=== PATIENT | male | born 1990 | race Hispanic/Latino ===

== ENCOUNTER 2018-08-30 06:56 | Emergency (ER) | payer SELFPAY ==
[2018-08-30] MEDS ORDERED: NA CHLORIDE 0.9% 1,000 ML ONE (07:28)
[2018-08-30 07:30] LABS: Absolute Lymphocytes (CBC) 3.8 K/uL (0.7-4.9); Absolute Monocytes 0.4 K/uL (0.1-1.3); Absolute Neutrophil 2.1 K/uL (1.8-8.0); Basophils % 0.8 % (0-1.3); Eosinophils % 2.6 % (0-4.4); Hematocrit 47.4 % (39.6-49.0); Lymphocytes % 58.5 % (15.3-44.8); MPV 8.9 fL (7.6-11.3); Monocytes % 6.2 % (3.3-12.3); RBC Red Blood Cell Count 5.49 M/uL (4.33-5.43)
--- NOTE | 2018-08-30 07:39 | EKG ---
Test Date: 2018-08-30 Test Time: 07:21:13 Director Biostatistics: BRUNO MEASUREMENT RESULTS: Intervals: Rate: 60 NC: 142 QRSD: 84 QT: 402 QTc: 402 [place]: P: 31 NC: 142 QRS: 16 T: 12 INTERPRETIVE STATEMENTS: Normal sinus rhythm Normal ECG No previous ECG available for comparison Electronically Signed On 08-30-18 07:27:35 CINDER PIT CRANE OPERATOR by Theodore Aleman
--- NOTE | 2018-08-30 08:02 | ER ---
Nurse's Notes [facility] Name: Abhinav Mccarty Age: 28 yrs Sex: Male : 1990 Arrival Date: 08/30/2018 Time: 06:58 Bed 19 Private MD: Diagnosis: Palpitations Presentation: 08/30 07:11 Presenting complaint: Patient states: woke up around 0400, thought he was late for work sv but then started "feeling strange" c/o palpitations and left lower side chest pain that lasted about an hour. Denies pain at this time. Transition of care: patient was not received from another setting of care. Onset of symptoms was August 30, 2018 at 04:00. Risk Assessment: Do you want to hurt yourself or someone else? Patient reports no desire to harm self or others. Initial Sepsis Screen: Does the patient meet any 2 criteria? No. Patient's initial sepsis screen is negative. Does the patient have a suspected source of infection? No. Patient's initial sepsis screen is negative. Care prior to arrival: None. 07:11 Method Of Arrival: Ambulatory sv 07:11 Acuity: PANCHO 3 sv Triage Assessment: 07:13 General: Appears in no apparent distress. comfortable, well groomed, well developed, sv Behavior is calm, cooperative, appropriate for age. Pain: Denies pain. Neuro: Level of Consciousness is awake, alert, obeys commands, Oriented to person, place, time, situation, Moves all extremities. Full function Gait is steady, Speech is normal. Respiratory: Airway is patent Respiratory effort is even, unlabored, Respiratory pattern is regular, symmetrical. Derm: Skin is pink, warm \\T\\ dry. Historical: - Allergies: 07:13 No Known Allergies; sv - PMHx: 07:13 Anxiety; sv - PSHx: 07:13 None; sv - Immunization history:: Adult Immunizations up to date. - Social history:: Smoking status: Patient/guardian denies using tobacco. - Family history:: not pertinent. - Ebola Screening: : No symptoms or risks identified at this time. - Hospitalizations: : No recent hospitalization is reported. Screenin:14 Abuse screen: Denies threats or abuse. Denies injuries from another. Nutritional sv screening: No deficits noted. Tuberculosis screening: No symptoms or risk factors identified. Fall Risk None identified. Assessment: 08:20 Reassessment: Patient appears in no apparent distress at this time. No changes from sv previously documented assessment. Patient and/or family updated on plan of care and expected duration. Pain level reassessed. Patient is alert, oriented x 3, equal unlabored respirations, skin warm/dry/pink. Vital Signs: 07:13 BP 136 / 95; Pulse 74; Resp 18; Temp 97.2; Pulse Ox 98% ; Weight 79.38 kg; Height 5 ft. sv 5 in. (165.10 cm); Pain 0/10; 07:52 BP 122 / 82; Pulse 58; Resp 16; Pulse Ox 99% ; sv 07:13 Body Mass Index 29.12 (79.38 kg, 165.10 cm) sv ED Course: 06:58 Patient arrived in ED. es 07:07 Cintia Whitaker, RN is Primary Nurse. sv 07:08 Cash Novoa MD is Attending Physician. rn 07:12 Triage completed. sv 07:13 Arm band placed on Patient placed in an exam room, on a stretcher, on pulse oximetry. sv 07:14 Patient has correct armband on for positive identification. Bed in low position. Call sv light in reach. Pulse ox on. NIBP on. Door closed. Head of bed elevated. 07:20 Initial lab(s) drawn, by ED staff, sent to lab. Inserted saline lock: 20 gauge in right sv antecubital area, using aseptic technique. Blood collected. Flushed right forearm with 5 ml normal saline. 07:36 EKG done, by fabrication technician. reviewed by Cash Novoa MD. at1 08:20 No provider procedures requiring assistance completed. IV discontinued, intact, sv bleeding controlled, No redness/swelling at site. Pressure dressing applied. Administered Medications: 07:23 Drug: NS 0.9% 1000 ml Route: IV; Rate: 1000 ml; Site: right antecubital; sv 08:21 Follow up: Response: No adverse reaction; IV Status: Completed infusion; IV Intake: sv 1000ml Intake: 08:21 IV: 1000ml; Total: 1000ml. sv Outcome: 07:59 Discharge ordered by . rn 08:21 Discharged to home ambulatory. sv 08:21 Condition: stable 08:21 Discharge instructions given to patient, Instructed on discharge instructions, follow up and referral plans. Demonstrated understanding of instructions, follow-up care. 08:21 Patient left the ED. sv Signatures: Cintia Whitaker RN RN sv Salyer, Edna es Nieto, Roman, MD MD rn Shaina Choi, primer inserting machine operator EKG Tat1
--- NOTE | 2018-08-30 08:02 | EDPHYS ---
Physician Documentation [facility] Name: Abhinav Mccarty Age: 28 yrs Sex: Male : 1990 Arrival Date: 08/30/2018 Time: 06:58 Bed 19 Private MD: ED Physician Cash Novoa HPI: 08/30 07:57 This 28 yrs old Male presents to ER via Ambulatory with complaints of rn Palpitations. 07:57 The patient presents with a history of heart racing. Context: The symptoms occur during rn sleep. Onset: The symptoms/episode began/occurred this morning. Duration: The patient or guardian reports a single episode. Severity of symptoms: At their worst the symptoms were moderate in the emergency department the symptoms have resolved. The patient has experienced similar episodes in the past. The patient has not recently seen a physician. Reports woke up from sleep with palpitations, no chest pain, felt fine when going to bed, no fever/chills/cough/sob/abd pain/vomiting/diarrhea. Now resolved. Numerous episodes in past, attributed to anxiety. . Historical: - Allergies: 07:13 No Known Allergies; sv - PMHx: 07:13 Anxiety; sv - PSHx: 07:13 None; sv - Immunization history:: Adult Immunizations up to date. - Social history:: Smoking status: Patient/guardian denies using tobacco. - Family history:: not pertinent. - Ebola Screening: : No symptoms or risks identified at this time. - Hospitalizations: : No recent hospitalization is reported. ROS: 07:57 Constitutional: Negative for fever, chills, and weight loss, Eyes: Negative for injury, rn pain, redness, and discharge, Neck: Negative for injury, pain, and swelling, Cardiovascular: Negative for chest pain, and edema, Respiratory: Negative for shortness of breath, cough, wheezing, and pleuritic chest pain, Abdomen/GI: Negative for abdominal pain, nausea, vomiting, diarrhea, and constipation, MS/Extremity: Negative for injury and deformity, Skin: Negative for injury, rash, and discoloration, Neuro: Negative for headache, weakness, numbness, tingling, and seizure. Exam: 07:54 ECG was reviewed by the Attending Physician. rn 07:57 Constitutional: This is a well developed, well nourished patient who is awake, alert, rn and in no acute distress. Head/Face: Normocephalic, atraumatic. Eyes: Pupils equal round and reactive to light, extra-ocular motions intact. Lids and lashes normal. Conjunctiva and sclera are non-icteric and not injected. Cornea within normal limits. Periorbital areas with no swelling, redness, or edema. Cardiovascular: Regular rate and rhythm with a normal S1 and S2. No gallops, murmurs, or rubs. Normal PMI, no JVD. No pulse deficits. Respiratory: Lungs have equal breath sounds bilaterally, clear to auscultation. No increased work of breathing, no retractions or nasal flaring. Abdomen/GI: soft, non-tender Skin: Warm, dry with normal turgor. Normal color with no rashes, no lesions, and no evidence of cellulitis. MS/ Extremity: Pulses equal, no cyanosis. Neurovascular intact. Full, normal range of motion. Equal circumference. Neuro: Awake and alert, GCS 15, oriented to person, place, time, and situation. Cranial nerves II-XII grossly intact. Motor strength 5/5 in all extremities. Sensory grossly intact. Cerebellar exam normal. Normal gait. Vital Signs: 07:13 BP 136 / 95; Pulse 74; Resp 18; Temp 97.2; Pulse Ox 98% ; Weight 79.38 kg; Height 5 ft. sv 5 in. (165.10 cm); Pain 0/10; 07:52 BP 122 / 82; Pulse 58; Resp 16; Pulse Ox 99% ; sv 07:13 Body Mass Index 29.12 (79.38 kg, 165.10 cm) sv MDM: 07:08 Patient medically screened. rn 07:57 Data reviewed: vital signs, nurses notes, lab test result(s), EKG, and as a result, I rn will discharge patient. Counseling: I had a detailed discussion with the patient and/or guardian regarding: the historical points, exam findings, and any diagnostic results supporting the discharge/admit diagnosis, lab results, the need for outpatient follow up, to return to the emergency department if symptoms worsen or persist or if there are any questions or concerns that arise at home. Response to treatment: the patient's condition has returned to base line, the patient is now symptom free, and as a result, I will discharge patient. Special discussion: I discussed with the patient/guardian in detail that at this point there is no indication for admission to the hospital. It is understood, however, that if the symptoms persist or worsen the patient needs to return immediately for re-evaluation. 08/30 07:13 Order name: CBC with Diff; Complete Time: 07:54 rn 08/30 07:13 Order name: Basic Metabolic Panel; Complete Time: 07:54 rn 08/30 07:13 Order name: IV Start; Complete Time: 07:23 rn 08/30 07:13 Order name: EKG; Complete Time: 07:14 rn 08/30 07:14 Order name: EKG - Nurse/Tech; Complete Time: : rn EC:54 Rate is 60 beats/min. Rhythm is regular. QRS [place] is Normal. [place] interval is normal. QRS rn interval is normal. QT interval is normal. No Q waves. T waves are Normal. No ST changes noted. Clinical impression: Normal ECG. Interpreted by me. Administered Medications: : Drug: NS 0.9% 1000 ml Route: IV; Rate: 1000 ml; Site: right antecubital; sv 08:21 Follow up: Response: No adverse reaction; IV Status: Completed infusion; IV Intake: sv 1000ml Disposition: 08/30/18 07:59 Discharged to Home. Impression: Palpitations. - Condition is Stable. - Discharge Instructions: Palpitations. - Work release form, Medication Reconciliation Form, Thank You Letter, Antibiotic Education, Prescription Opioid Use form. - Follow up: Private Physician; When: As needed; Reason: Recheck today's complaints, Re-evaluation by your physician. - Problem is new. - Symptoms have improved. Signatures: Dispatcher [employer] Cintia Osborn RN RN Cash Novoa MD MD quality assurance intern: (The following items were deleted from the chart) 08:21 07:59 08/30/2018 07:59 Discharged to Home. Impression: Palpitations. Condition is sv Stable. Forms are Medication Reconciliation Form, Thank You Letter, Antibiotic Education, Prescription Opioid Use. Follow up: Private Physician; When: As needed; Reason: Recheck today's complaints, Re-evaluation by your physician. Problem is new. Symptoms have improved. rn
== END 2018-08-30 08:21 | disposition home or self-care (01) ==
LOC: ER 06:56
DX: R00.2 Palpitations (principal); F41.9 Anxiety disorder, unspecified
CPT/HCPCS: 36415; 80048; 85025; 93005; 96360; 99284; J7030

== ENCOUNTER 2020-11-12 07:09 | Emergency (ER) | payer OTHER, SELFPAY ==
--- OUTSIDE RECORDS SUMMARY | 2020-11-12 07:11 | XMS REPORT | Continuity of Care Document ---
:1990 Author Organization [facility] t Address [address] [place] [address] Care Team Providers Name Role Phone Unavailable Unavailable Unavailable Payers Payer Name Policy Type Policy Number Effective Date Expiration Date S ource Problems This patient has no known problems. Allergies, Adverse Reactions, Alerts Allergy Allergy Status Severity Reaction(s) Onset Inactive Treating Comm ents Source Name Type Date Date Clinician No Known DA Active U 2017-0 [facility] All[facility] 2 [facility] Medications This patient has no known medications. Procedures This patient has no known procedures. Results This patient has no known results.
[2020-11-12] MEDS ORDERED: MAGNES/ALUMIN/SIMET 30ML UCUP ONE (08:03)
--- NOTE | 2020-11-12 08:03 | ER ---
Nurse's Notes [facility] Name: Abhinav Mccarty Age: 30 yrs Sex: Male : 1990 Arrival Date: 11/12/2020 Time: 07:11 Bed 4 Private MD: Diagnosis: Chest pain, unspecified;Gastro-esophageal reflux disease Presentation: 11/12 07:36 Chief complaint: Patient states: episodes of L sided chest pain described as needles ss that has been ongoing for years, but is getting worse over the past few days. Pt states, "I don't know if my anxiety is coming back or what.". Coronavirus screen: Client denies travel out of the [place] in the last 14 days. Ebola Screen: Patient denies exposure to infectious person. Patient denies travel to an Ebola-affected area in the 21 days before illness onset. Initial Sepsis Screen: Does the patient meet any 2 criteria? No. Patient's initial sepsis screen is negative. Does the patient have a suspected source of infection? No. Patient's initial sepsis screen is negative. Risk Assessment: Do you want to hurt yourself or someone else? Patient reports no desire to harm self or others. Onset of symptoms is unknown. 07:36 Method Of Arrival: Ambulatory ss 07:36 Acuity: PANCHO 3 ss Historical: - Allergies: 07:44 No Known Allergies; ss - Home Meds: 07:44 None [Active]; ss - PMHx: 07:44 Anxiety; ss - PSHx: 07:44 None; ss - Immunization history:: Adult Immunizations up to date. - Social history:: Smoking status: Patient denies any tobacco usage or history of. - Family history:: not pertinent. - Hospitalizations: : No recent hospitalization is reported. Screenin:44 Abuse screen: Denies threats or abuse. Denies injuries from another. Nutritional ss screening: No deficits noted. Tuberculosis screening: Never had TB. Fall Risk None identified. 07:57 Abuse screen: Denies threats or abuse. Denies injuries from another. Nutritional ld1 screening: No deficits noted. Tuberculosis screening: No symptoms or risk factors identified. Fall Risk None identified. Assessment: 07:57 General: Appears in no apparent distress. comfortable, Behavior is calm, cooperative, ld1 appropriate for age. Pain: Complains of pain in anterior aspect of left upper chest and left breast Pain does not radiate. Pain currently is 3 out of 10 on a pain scale. Quality of pain is described as burning, Pain began gradually, Is continuous, Aggravated by eating. Neuro: Level of Consciousness is awake, alert, obeys commands, Oriented to person, place, time, situation, Appropriate for age. Cardiovascular: Reports chest pain, Capillary refill < 3 seconds Patient's skin is warm and dry. Rhythm is regular. Respiratory: Airway is patent Respiratory effort is even, unlabored, Respiratory pattern is regular, symmetrical. GI: Abdomen is flat, non-distended, Bowel sounds present X 4 quads. : No deficits noted. EENT: No deficits noted. Derm: No deficits noted. Musculoskeletal: No deficits noted. Vital Signs: 07:36 Resp 16; Temp 97.6; Weight 90.72 kg; Height 5 ft. 5 in. (165.10 cm); Pain 3/10; ss 07:57 BP 130 / 94; Pulse 70; Resp 17; Temp 98.4(O); Pulse Ox 100% on R/A; Weight 90.72 kg; ld1 Height 5 ft. 5 in. (165.10 cm); Pain 3/10; 07:57 Body Mass Index 33.28 (90.72 kg, 165.10 cm) ld1 ED Course: 07:11 Patient arrived in ED. cl3 07:13 Cash Novoa MD is Attending Physician. rn 07:31 Wen Birmingham, CHEMO is Primary Nurse. ld1 07:43 Triage completed. ss 07:44 Arm band placed on left wrist. ss 07:44 Patient has correct armband on for positive identification. Bed in low position. Call ss light in reach. credit charge authorizer on. Pulse ox on. NIBP on. 07:44 Patient maintains SpO2 saturation greater than 95% on room air. ss 07:57 Patient has correct armband on for positive identification. Bed in low position. Call ld1 light in reach. Side rails up X 1. credit charge authorizer on. Pulse ox on. NIBP on. Door closed. Noise minimized. 07:57 No provider procedures requiring assistance completed. Patient maintains SpO2 ld1 saturation greater than 95% on room air. 08:29 Patient did not have IV access during this emergency room visit. ld1 Administered Medications: 07:56 Drug: GI Cocktail without - (Maalox Suspension 30 ml, Lidocaine Liquid 2 % 15 ld1 ml) Route: PO; 08:30 Follow up: Response: No adverse reaction ld1 Outcome: 08:03 Discharge ordered by . rn 08:29 Discharged to home ambulatory. ld1 08:29 Condition: stable 08:29 Discharge instructions given to patient, Instructed on discharge instructions, follow up and referral plans. medication usage, Demonstrated understanding of instructions, follow-up care, medications, Prescriptions given X 1. 08:29 Patient left the ED. ld1 Signatures: Cash Novoa MD MD rn Smirch, Shelby, RN RN ss Lewis, Charde cl3 Wen Birmingham RN RN ld1
--- NOTE | 2020-11-12 08:03 | EDPHYS ---
Physician Documentation [facility] Name: Abhinav Mccarty Age: 30 yrs Sex: Male : 1990 Arrival Date: 11/12/2020 Time: 07:11 Bed 4 Private MD: ED Physician Cash Novoa HPI: 11/12 07:43 This 30 yrs old Male presents to ER via Ambulatory with complaints of Chest rn Pain. 07:43 The patient or guardian reports chest pain that is located primarily in the anterior rn chest wall, left. The pain does not radiate. Associated signs and symptoms: Pertinent positives: None. Pertinent negatives: abdominal pain, cough, diaphoresis, dizziness, lightheadedness, nausea, palpitations, shortness of breath, syncope, vomiting. The chest pain is described as aching. Duration: The patient or guardian reports multiple episodes, that are intermittent. Modifying factors: The symptoms are alleviated by nothing. the symptoms are aggravated by eating. Severity of pain: At its worst the pain was mild in the emergency department the pain has improved. The patient has experienced similar episodes in the past. The patient has not recently seen a physician. Reports chest pain, left sided, for atleast 2 years, intermittent, reports not sure if his anxiety, but has also been having acid reflux lately, doesn't take any medication for reflux, only intermittent Tums. No abd pain/vomiting. . Historical: - Allergies: 07:44 No Known Allergies; ss - Home Meds: 07:44 None [Active]; ss - PMHx: 07:44 Anxiety; ss - PSHx: 07:44 None; ss - Immunization history:: Adult Immunizations up to date. - Social history:: Smoking status: Patient denies any tobacco usage or history of. - Family history:: not pertinent. - Hospitalizations: : No recent hospitalization is reported. ROS: 07:43 Constitutional: Negative for fever, chills, and weight loss, Eyes: Negative for injury, rn pain, redness, and discharge, Neck: Negative for injury, pain, and swelling, Cardiovascular: Negative for palpitations, and edema Respiratory: Negative for shortness of breath, cough, wheezing, and pleuritic chest pain, Abdomen/GI: Negative for abdominal pain, nausea, vomiting, diarrhea, and constipation, Back: Negative for injury and pain, MS/Extremity: Negative for injury and deformity, Skin: Negative for injury, rash, and discoloration, Neuro: Negative for headache, weakness, numbness, tingling, and seizure. Exam: 07:43 Constitutional: This is a well developed, well nourished patient who is awake, alert, rn and in no acute distress. Ambulatory to room without difficulty Head/Face: Normocephalic, atraumatic. Eyes: Periorbital areas with no swelling, redness, or edema. Cardiovascular: Regular rate and rhythm. No pulse deficits. Respiratory: No increased work of breathing, no retractions or nasal flaring. Abdomen/GI: Soft, non-tender, with normal bowel sounds. No distension or tympany. No guarding or rebound. No evidence of tenderness throughout. Skin: Warm, dry MS/ Extremity: Pulses equal, no cyanosis. Neuro: Awake and alert, GCS 15, oriented to person, place, time, and situation. Cranial nerves II-XII grossly intact. Motor strength 5/5 in all extremities. Sensory grossly intact. Cerebellar exam normal. Normal gait. 07:59 ECG was reviewed by the Attending Physician. rn Vital Signs: 07:36 Resp 16; Temp 97.6; Weight 90.72 kg; Height 5 ft. 5 in. (165.10 cm); Pain 3/10; ss 07:57 BP 130 / 94; Pulse 70; Resp 17; Temp 98.4(O); Pulse Ox 100% on R/A; Weight 90.72 kg; ld1 Height 5 ft. 5 in. (165.10 cm); Pain 3/10; 07:57 Body Mass Index 33.28 (90.72 kg, 165.10 cm) ld1 MDM: 07:13 Patient medically screened. rn 07:59 Differential diagnosis: acute pericarditis, anxiety, chest wall pain, Cholelithiasis rn esophagitis, gastritis, gastroesophageal reflux disease (GERD), pleurisy. Data reviewed: vital signs, nurses notes, old medical records, EKG, and as a result, I will discharge patient. Counseling: I had a detailed discussion with the patient and/or guardian regarding: the historical points, exam findings, and any diagnostic results supporting the discharge/admit diagnosis, the need for outpatient follow up, to return to the emergency department if symptoms worsen or persist or if there are any questions or concerns that arise at home. Special discussion: Based on the patient's history, exam, and Dx evaluation, there is no indication for emergent intervention or inpatient Tx. It is understood by the patient/guardian that if the Sx's persist or worsen they need to return immediately for re-evaluation. I discussed with the patient/guardian in detail that at this point there is no indication for admission to the hospital. It is understood, however, that if the symptoms persist or worsen the patient needs to return immediately for re-evaluation. 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 . 11/12 07:41 Order name: EKG; Complete Time: 07:41 rn 11/12 07:41 Order name: EKG - Nurse/Tech; Complete Time: 07:57 rn EC:59 Rate is 61 beats/min. Rhythm is regular. QRS [place] is Normal. CT interval is normal. QRS rn interval is normal. QT interval is normal. No Q waves. T waves are Normal. No ST changes noted. Clinical impression: Normal ECG. Interpreted by me. Reviewed by me. Administered Medications: 07:56 Drug: GI Cocktail without - (Maalox Suspension 30 ml, Lidocaine Liquid 2 % 15 ld1 ml) Route: PO; 08:30 Follow up: Response: No adverse reaction ld1 Disposition: 11/12/20 08:03 Discharged to Home. Impression: Chest pain, unspecified, Gastro-esophageal reflux disease. - Condition is Stable. - Discharge Instructions: Nonspecific Chest Pain, Gastroesophageal Reflux Disease, Adult. - Prescriptions for Protonix 40 mg Oral Tablet - take 1 tablet by ORAL route once daily; 30 tablet. - Medication Reconciliation Form, Thank You Letter, Antibiotic Education, Prescription Opioid Use, Work release form form. - Follow up: Private Physician; When: As needed; Reason: Recheck today's complaints, Re-evaluation by your physician. - Problem is chronic. - Symptoms have improved. Signatures: Cash Novoa MD MD rn Smirch, Shelby, RN RN Wen Birmingham RN RN ld1 Corrections: (The following items were deleted from the chart) 08:29 08:03 11/12/2020 08:03 Discharged to Home. Impression: Chest pain, unspecified; ld1 Gastro-esophageal reflux disease. Condition is Stable. Forms are Medication Reconciliation Form, Thank You Letter, Antibiotic Education, Prescription Opioid Use. Follow up: Private Physician; When: As needed; Reason: Recheck today's complaints, Re-evaluation by your physician. Problem is chronic. Symptoms have improved. rn
[2020-11-12] MEDS ORDERED: LIDOCAINE VISCOUS 2% SOLN 15 ML UDC ONE (08:04)
[2020-11-12 08:36] VITALS: BP 130/94; TEMP 98.4; O2SAT 100
--- NOTE | 2020-11-13 16:13 | EKG ---
Test Date: 2020-11-12 Test Time: 07:53:59 Career Development Specialist: Jluis HUMPHREY MEASUREMENT RESULTS: Intervals: Rate: 61 NV: 144 QRSD: 88 QT: 400 QTc: 402 [place]: P: 42 NV: 144 QRS: -12 T: 4 INTERPRETIVE STATEMENTS: Normal sinus rhythm Moderate voltage criteria for LVH, may be normal variant Borderline ECG Compared to ECG 08/30/2018 07:21:13 Left ventricular hypertrophy now present Electronically Signed On 11-13-20 16:07:29 CDT by Anton Leiva
== END 2020-11-12 08:29 | disposition home or self-care (01) ==
LOC: ER 07:09
DX: K21.9 Gastro-esophageal reflux disease without esophagitis (principal)
CPT/HCPCS: 93005; 99284

== ENCOUNTER 2022-03-09 11:06 | Emergency (ER) | payer SELFPAY ==
--- OUTSIDE RECORDS SUMMARY | 2022-03-09 11:10 | XMS REPORT | Continuity of Care Document ---
:1990 Author Organization [facility] t Address [address] [place] [address] Care Team Providers Name Role Phone WELLNESS Attending Clinician Unavailable Narcisa Jauregui Admitting Clinician Unavailable Payers Payer Name Policy Type Policy Number Effective Date Expiration Date S ource Problems This patient has no known problems. Allergies, Adverse Reactions, Alerts Allergy Allergy Status Severity Reaction(s) Onset Inactive Treating Comm ents Source Name Type Date Date Clinician No Known DA Active U 2017-0 [facility] No Known DA Active U 2018-0 [facility] Medications This patient has no known medications. Procedures This patient has no known procedures. Encounters Start End Encounter Admission Attending Care Care Encounter Source Date/Time Date/Time Type Type Clinicians Facility Department ID 2020-07-09 Inpatient [facility] [id number] [facility] 00:49:00 [id number] [facility] Results Test Description Test Time Test Comments Results Result Comments Source CHEMISTRY 25 PROFILE 2022-02-13 14:55:00 Test Item Value Reference Range Interpretation Comme nts SODIUM (test code = NA) 139 mmol/L 136-145 N POTASSIUM (test code = K) 4.2 mmol/L 3.5-5.1 N CHLORIDE (test code = CL) 105 mmol/L 98-107 N CARBON DIOXIDE (test code = CO2) 26 mmol/L 21-32 N GLUCOSE (test code = GLU) 105 mg/dL 70-100 H BLOOD UREA NITROGEN (test code = 17 mg/dL 7-18 N BUN) GLOMERULAR FILTRATION RATE (test > 60.00 See_Comment Reporting units: code = GFR) mL/min/1.73m\S\ 2 (Modified MDRD formula)RE FERENCE RANGE: > or = 6 0 ml/min/1.73M2IF PATIENT IS -REYNALDO N, MULTIPLY REPORTED RESULT BY1.21. [Automated mess age] The system which ge nerated this result transmit yesenia reference range: >=60. Th e reference range was not u sed to interpret this result as normal/abnormal . CREATININE (test code = CREAT) 1.32 mg/dl 0.70-1.30 H TOTAL PROTEIN (test code = PROT) 8.5 g/dl 6.4-8.2 H ALBUMIN (test code = ALB) 4.3 g/dl 3.4-5.0 N CALCIUM (test code = CA) 8.7 mg/dl 8.5-10.1 N PHOSPHOROUS (test code = PHOS) 2.2 mg/dl 2.6-4.7 L URIC ACID (test code = URIC) 9.0 mg/dL 3.5-7.2 H TRIGLYCERIDES (test code = TRIG) 97 mg/dL <150 CHOLESTEROL (test code = CHOL) 258 mg/dL < 200 H BILIRUBIN TOTAL (test code = 0.9 mg/dL 0.2-1.0 N BILT) SGOT/AST (test code = AST) 7 U/L 15-37 L SGPT/ALT (test code = ALT) 25 U/L 12-78 N GAMMA GLUTAMYL TRANSPEPTIDASE 26 U/L 15-85 N (test code = GGT) ALKALINE PHOSPHATASE TOTAL (test 83 U/L 45-117 N code = ALKP) LACTIC DEHYDROGENASE(LDH) (test 192 U/L 87-241 N code = LDH) HDL CHOLESTEROL (test code = 48 mg/dL 40-59 N HDL) NON-HDL CHOLESTEROL (test code = 210 mg/dl <130 H NHDL) LIPOPROTEIN LDL SERGO (test code = 191 mg/dl <100 H LDLC) LDL/HDL (test code = LDL/HDL) 4.0 Ratio LDL/HDL RATIO RISK ---- 3.22 Average 5.03 Tw ice average 6.14 Three time s average [id number] 14:44:00 Test Item Value Reference Range Interpretation Comments GLYCOSYLATED HEMOGLOBIN 5.7 % <5.7 H * DU E TO METHOD (HA1C) (test code = REVISION , REFERENCE GLYHGB) RANGE HAS BEEN UPDATED * ESTIMATED AVERAGE 117 MG/DL <126 GLUCOSE (test code = EAG) PECBC W/AUTO [id number] 14:34:00 Test Item Value Reference Range Interpretation Comments WHITE BLOOD CELL (test code = 5.1 X10(3) 4.5-11.0 N WBC) RED BLOOD CELL (test code = 5.66 X10(6) 4.3-5.9 N RBC) HEMOGLOBIN (test code = HGB) 16.3 g/dL 13.5-18.0 N HEMATOCRIT (test code = HCT) 48.2 % 42.0-52.0 N MEAN CELL VOLUME (test code = 85.2 fL 78-100 N MCV) MEAN CELL HGB (test code = MCH) 28.8 pg 26.0-34.0 N MEAN CELL HGB CONCETRATION 33.8 g/dl 30.0-37.0 N (test code = MCHC) RED CELL DISTRIBUTION WIDTH 12.2 % 11.5-14.5 N (test code = RDW) PLATELET COUNT (test code = 287 X10(3) 150-350 N PLT) MEAN PLATELET VOLUME (test code 10.2 fl 8.7-11.4 N = MPV) NEUTROPHIL % (test code = NT%) 43.8 % 36.0-66.0 N IMMATURE GRANULOCYTE % (test 0.2 % 0.0-2.0 N code = IG%) LYMPHOCYTE % (test code = LY%) 43.9 % 16-50 N MONOCYTE % (test code = MO%) 8.5 % 0.0-13.0 N EOSINOPHIL % (test code = EO%) 2.8 % 0.0-4.5 N BASOPHIL % (test code = BA%) 0.8 % 0.0-1.5 N NEUTROPHIL # (test code = NT#) 2.2 X10(3) 1.7-7.7 N IMMATURE GRANULOCYTE # (test 0.01 X10(3)uL 0.00-0.03 N code = IG#) LYMPHOCYTE # (test code = LY#) 2.2 X10(3) 1.0-4.8 N MONOCYTE # (test code = MO#) 0.4 X10(3) 0.0-0.89 N EOSINOPHIL # (test code = EO#) 0.1 X10(3) 0.0-0.6 N BASOPHIL # (test code = BA#) 0.0 X10(3) 0.0-0.2 N PE
[2022-03-09] MEDS ORDERED: METOCLOPRAMIDE 10 MG/2mL INJ ONE (13:18)
[2022-03-09] MEDS ORDERED: NA CHLORIDE 0.9% 0 ML ONE ×2 (13:18)
[2022-03-09] MEDS ORDERED: MECLIZINE HCL 12.5 MG TAB ONE (13:18)
--- NOTE | 2022-03-09 13:19 | ER ---
Nurse's Notes [facility] Name: Abhinav Mccarty Age: 31 yrs Sex: Male : 1990 Arrival Date: 03/09/2022 Time: 11:09 Bed 12 Private MD: Diagnosis: SARS-associated coronavirus as the cause of diseases classified elsewhere Presentation: 03/09 11:26 Chief complaint: Patient states: Covid + last Wednesday, had multiple symptoms which ph have all improved except dizziness and mild intermittent SOB, denies N/V/D or fever. Coronavirus screen: Vaccine status: Patient reports being unvaccinated. Ebola Screen: No symptoms or risks identified at this time. Initial Sepsis Screen: Does the patient meet any 2 criteria? No. Patient's initial sepsis screen is negative. Does the patient have a suspected source of infection? No. Patient's initial sepsis screen is negative. Risk Assessment: Do you want to hurt yourself or someone else? Patient reports no desire to harm self or others. Onset of symptoms was March 09, 2022. 11:26 Method Of Arrival: Ambulatory ph 11:26 Acuity: PANCHO 3 ph Historical: - Allergies: 11:28 No Known Allergies; ph - PMHx: 11:28 Anxiety; ph - Immunization history:: Adult Immunizations unknown. - Social history:: Smoking status: Patient denies any tobacco usage or history of. Assessment: 14:31 Reassessment: Pt declining IV meds, states that he is feeling better. ph Vital Signs: 11:26 BP 125 / 86; Pulse 106; Resp 18; Temp 97.6; Pulse Ox 97% on R/A; Weight 92.99 kg; ph Height 5 ft. 5 in. (165.10 cm); 11:26 Body Mass Index 34.11 (92.99 kg, 165.10 cm) ph ED Course: 11:09 Patient arrived in ED. mr 11:17 Don Herrera is PHCP. jl9 11:17 Tanner Sterling DO is Attending Physician. jl9 11:28 Triage completed. ph 11:28 Arm band placed on Patient placed in waiting room, Patient notified of wait time. ph 12:29 Alee Uriarte RN is Primary Nurse. jl7 13:29 XRAY Chest (1 view) In Process Unspecified. EDMS Administered Medications: 14:31 Not Given (Patient Refused): Meclizine 25 mg PO once ph 14:31 Not Given (Patient Refused): NS 0.9% 1000 ml IV at 1000 ml once ph 14:31 Not Given (Patient Refused): Reglan (metoCLOPramide) 10 mg IVP once; over 1 to 2 minutesph Outcome: 13:19 Discharge ordered by MD. plaza 14:32 Patient left the ED. ph Signatures: Dispatcher [employer] EDMS Angelica Rudd Patricia, RN RN ph Alee Uriarte RN RN [email or web address] Don Herrera
--- NOTE | 2022-03-09 13:20 | EDPHYS ---
Physician Documentation [facility] Name: Abhinav Mccarty Age: 31 yrs Sex: Male : 1990 Arrival Date: 03/09/2022 Time: 11:09 Bed 12 Private MD: ED Physician Tanner Sterling HPI: 03/09 12:46 This 31 yrs old Male presents to ER via Ambulatory with complaints of jl9 Dizziness earlier today. Patient diagnosed with COVID 1 week ago. . 12:46 The patient presents with feeling faint. Onset: The symptoms/episode began/occurred 1 jl9 week(s) ago. Context: occurred while the patient was working. Severity of symptoms: in the emergency department the symptoms have improved. Historical: - Allergies: 11:28 No Known Allergies; ph - PMHx: :28 Anxiety; ph - Immunization history:: Adult Immunizations unknown. - Social history:: Smoking status: Patient denies any tobacco usage or history of. ROS: 12:47 Constitutional: Negative for fever, chills, and weight loss, Eyes: Negative for injury, jl9 pain, redness, and discharge, ENT: Negative for injury, pain, and discharge, Neck: Negative for injury, pain, and swelling, Cardiovascular: Negative for chest pain, palpitations, and edema, Respiratory: Negative for shortness of breath, cough, wheezing, and pleuritic chest pain, Abdomen/GI: Negative for abdominal pain, nausea, vomiting, diarrhea, and constipation, Back: Negative for injury and pain, : Negative for injury, bleeding, discharge, and swelling, MS/Extremity: Negative for injury and deformity, Skin: Negative for injury, rash, and discoloration, Neuro: Negative for headache, weakness, numbness, tingling, and seizure, Psych: Negative for depression, anxiety, suicide ideation, homicidal ideation, and hallucinations. 12:47 Neuro: Negative for headache, numbness, tingling, and seizure, Allergy/Immunology: jl9 Negative for hives, rash, and allergies, Endocrine: Negative for neck swelling, polydipsia, polyuria, polyphagia, and marked weight changes, Hematologic/Lymphatic: Negative for swollen nodes, abnormal bleeding, and unusual bruising. Exam: 12:48 Constitutional: This is a well developed, well nourished patient who is awake, alert, jl9 and in no acute distress. Head/Face: Normocephalic, atraumatic. Eyes: Pupils equal round and reactive to light, extra-ocular motions intact. Lids and lashes normal. Conjunctiva and sclera are non-icteric and not injected. Cornea within normal limits. Periorbital areas with no swelling, redness, or edema. ENT: Mucous membranes moist. Neck: Trachea midline, no thyromegaly or masses palpated, and no cervical lymphadenopathy. Supple, full range of motion without nuchal rigidity, or vertebral point tenderness. No Meningismus. Chest/axilla: Normal chest wall appearance and motion. Nontender with no deformity. No lesions are appreciated. Cardiovascular: Regular rate and rhythm with a normal S1 and S2. No gallops, murmurs, or rubs. Normal PMI, no JVD. No pulse deficits. Respiratory: Lungs have equal breath sounds bilaterally, clear to auscultation and percussion. No rales, rhonchi or wheezes noted. No increased work of breathing, no retractions or nasal flaring. Abdomen/GI: Soft, non-tender, with normal bowel sounds. No distension or tympany. No guarding or rebound. No evidence of tenderness throughout. Back: No spinal tenderness. No costovertebral tenderness. Full range of motion. Skin: Warm, dry with normal turgor. Normal color with no rashes, no lesions, and no evidence of cellulitis. MS/ Extremity: Pulses equal, no cyanosis. Neurovascular intact. Full, normal range of motion. Neuro: Awake and alert, GCS 15, oriented to person, place, time, and situation. Cranial nerves II-XII grossly intact. Motor strength 5/5 in all extremities. Sensory grossly intact. Cerebellar exam normal. Normal gait. Psych: Awake, alert, with orientation to person, place and time. Behavior, mood, and affect are within normal limits. Vital Signs: 11:26 BP 125 / 86; Pulse 106; Resp 18; Temp 97.6; Pulse Ox 97% on R/A; Weight 92.99 kg; ph Height 5 ft. 5 in. (165.10 cm); 11:26 Body Mass Index 34.11 (92.99 kg, 165.10 cm) ph MDM: 12:25 Patient medically screened. jl9 12:48 Data reviewed: vital signs, nurses notes. jl9 13:20 Special discussion: Patient declined IVF and meds due to feeling better. Patient states jl9 he just needs a work note. . 03/09 11:32 Order name: XRAY Chest (1 view); Complete Time: 14:28 jl9 Administered Medications: 14:31 Not Given (Patient Refused): Meclizine 25 mg PO once ph 14:31 Not Given (Patient Refused): NS 0.9% 1000 ml IV at 1000 ml once ph 14:31 Not Given (Patient Refused): Reglan (metoCLOPramide) 10 mg IVP once; over 1 to 2 minutesph Disposition: 21:37 Co-signature as Attending Physician, Tanner Sterling DO I was immediately available on-site ms3 in the Emergency Department for consultation in the care of the patient.. Disposition Summary: 03/09/22 13:19 Discharge Ordered Location: Home jl9 Condition: Stable jl9 Diagnosis - SARS-associated coronavirus as the cause of diseases classified elsewhere jl9 Followup: jl9 - With: Private Physician - When: 1 - 2 days - Reason: Recheck today's complaints, Continuance of care, Re-evaluation by your physician Discharge Instructions: - Discharge Summary Sheet jl9 - COVID-19 jl9 - 10 Things You Can Do to Manage Your COVID-19 Symptoms at Home - [facility] jl9 Forms: - Medication Reconciliation Form jl9 - Thank You Letter jl9 - Work release form ph - Antibiotic Education jl9 - Prescription Opioid Use jl9 Signatures: Dispatcher [employer] Kalie Wells RN RN Tanner Lipscomb DO DO ms3 JavierDon jl9 Corrections: (The following items were deleted from the chart) 12:48 12:47 Constitutional: Negative for fever, chills, and weight loss, Eyes: Negative for jl9 injury, pain, redness, and discharge, ENT: Negative for injury, pain, and discharge, Neck: Negative for injury, pain, and swelling, Cardiovascular: Negative for chest pain, palpitations, and edema, Respiratory: Negative for shortness of breath, cough, wheezing, and pleuritic chest pain, Abdomen/GI: Negative for abdominal pain, nausea, vomiting, diarrhea, and constipation, Back: Negative for injury and pain, : Negative for injury, bleeding, discharge, and swelling, MS/Extremity: Negative for injury and deformity, Skin: Negative for injury, rash, and discoloration, Neuro: Negative for headache, weakness, numbness, tingling, and seizure, Psych: Negative for depression, anxiety, suicide ideation, homicidal ideation, and hallucinations, jl9 14:31 11:34 IV Saline Lock ordered. jl9 ph
--- NOTE | 2022-03-09 14:26 | RAD REPORT ---
EXAM DESCRIPTION: Sharita Single View03/09/2022 1:27 pm CLINICAL HISTORY: Congestion COMPARISON: none FINDINGS: The lungs appear clear of acute infiltrate. The heart is normal size IMPRESSION: No acute abnormalities displayed
[2022-03-09 14:55] VITALS: BP 125/86; TEMP 97.6; O2SAT 97
== END 2022-03-09 14:32 | disposition home or self-care (01) ==
LOC: ER 11:06
DX: U07.1 COVID-19 (principal)
CPT/HCPCS: 71045; 99282; J2765; J7030; J8597